=== PATIENT | male | born 1975 | race Caucasian/White ===

== ENCOUNTER 2016-08-12 07:55 | Emergency (ER) | payer OTHER ==
[2016-08-12 08:21] VITALS: BP 144/99; PULSE 74; RESP 20; TEMP 97.3; O2SAT 97
--- NOTE | 2016-08-12 08:35 | CPEKG ---
Heart Rate: 64 RR Interval: 938 P-R Interval: 156 QRSD Interval: 108 QT Interval: 428 QTC Interval: 442 P [place]: 69 QRS [place]: 76 T Wave [place]: 58 EKG Severity - ABNORMAL ECG - EKG Impression: SINUS RHYTHM EKG Impression: INCOMPLETE RIGHT BUNDLE BRANCH BLOCK Electronically Signed By: Dieudonne Sanchez 16-Aug-2016 09:04:10
--- NOTE | 2016-08-12 08:58 | UCPHY ---
H & P Time Seen by Provider: 08/12/16 08:07 Patient Type: New HPI/ROS: CHIEF COMPLAINT: Anxiety, insomnia HPI: The patient is a 41-year-old male who states that he recently underwent a sleep test for insomnia and believes that he has sleep apnea. The patient describes waking each night in a severe panic feeling like his body will stop breathing at any moment. This has been going on for approximately 1 month. Describes severe anxiety throughout the course of the day as well as severe preoccupation with his blood pressure and concern over the fact that his bilateral hands feel cold. He is concerned that he is having heart attack. He states that he has not received the results of his sleep study which was performed approximately 3 weeks ago. REVIEW OF SYSTEMS: Aside from elements discussed in the HPI, a comprehensive 10-point review of systems was reviewed and is negative. PMH: Anxiety. No known history of cardiac disease. SOCIAL HISTORY: . Denies alcohol or drug abuse. FAMILY HISTORY: Reviewed, noncontributory PHYSICAL EXAM: General:Patient is alert, in no acute distress. He appears quite anxious. ENT:Eyes are normal to inspection. ENT inspection normal. Neck: Normal inspection. Full range of motion. Respiratory:No respiratory distress. Breath sounds normal bilaterally. Cardiovascular: Regular rate and rhythm. Strong peripheral pulses. Normal cap refill. Abdomen:The abdomen is nontender to palpation. There are no peritoneal signs. There are normal bowel sounds. Back: Normal to inspection. No tenderness to palpation. Skin: Normal color. No rash. Warm and dry. Extremities: Normal appearance. Full range of motion. Neuro: Oriented x3. Normal motor function. Normal sensory function. Smoking Status: Never smoked Constitutional: Initial Vital Signs Temperature (C) 36.3 C 08/12/16 08:16 Heart Rate 74 08/12/16 08:16 Respiratory Rate 20 08/12/16 08:16 Blood Pressure 144/99 H 08/12/16 08:16 O2 Sat (%) 97 08/12/16 08:16 O2 Delivery Mode Room Air Allergies/Adverse Reactions: No Known Allergies Allergy (Unverified 08/12/16 08:21) Home Medications: Medication Instructions Recorded ALPRAZolam [Xanax 0.5 MG (*)] 0.5 mg PO TID PRN #20 tab 08/12/16 Aspirin EC 81 mg (*) 08/12/16 Ativan 08/12/16 Prevacid 08/12/16 MDM/Departure - MDM ED Course/Re-evaluation: This patient presents with severe anxiety concerning for panic disorder. He may indeed have sleep apnea, but he is suffering quite debilitating symptoms related to anxiety. We performed an EKG which reveals no sign of ischemia or abnormality. Given the fact that his symptoms have been ongoing for approximately 1 month and he continues to have a normal EKG and normal physical exam, I doubt that this represents acute coronary syndrome or cardiac-induced true PND. I explained to the patient that we would need to perform additional blood work and imaging to rule out a heart problem, but he declines blood testing here. I was able to call [facility] and arrange for an appointment on Monday which the patient is comfortable pursuing. I do think the patient would benefit from a trial of oral Xanax to try encouraged his symptoms. He is comfortable with this plan as well. We discussed strict return precautions. - Depart Disposition: Home, Routine, Self-Care Clinical Impression: Panic disorder Condition: Good Instructions: Anxiety (ED) Additional Instructions: Follow-up with a manager technical within 1 week. Return to the hospital for chest pain, shortness of breath, other concerns. You have an appointment with Pablo Santos on Tuesday 08/15 at 9am. Please check in for your appointment no later than 08:45.The office address is listed below for your convenience. if you have any questions, please contact the office directly at the number listed. [address] [id number] Prescriptions: ALPRAZolam [Xanax 0.5 MG (*)] 0.5 mg PO TID PRN #20 tab PRN Reason: Anxiety Referrals: Valeria Marinelli MD [Primary Care Provider] - As per Instructions Pablo Santos, AUTOMATIC SPLICING MACHINE OPERATOR [Certified Nurse Practioner] - As per Instructions - PQRS PQRS Measurement: 134: Depression screening and followup, PRIME HENDRICKS-PHQ2 (12 years and older) Over the last 2 weeks, how often have you been bothered by any of the following problems? 1. Feeling down, depressed, or hopeless? 2. Little interest or pleasure in doing things? Patient answered no to both 1 and 2 130: Documentation of medications. Reviewed all patient medications, doses, route and frequency. 226: Do you smoke? No. 51: 18 years old and older with diagnosis of COPD, spirometry performance. Spirometry not performed; equipment not available. Patient has no history of COPD 52: 18 years old and older with COPD and symptoms of COPD or FEV1<60% predicted prescribed a B Agonist. Spirometry not performed; equipment not available.
== END 2016-08-12 09:25 | disposition home or self-care (01) ==
LOC: CED 07:55
DX: F41.9 Anxiety disorder, unspecified (principal); G47.00 Insomnia, unspecified
CPT/HCPCS: 93010-PO; 99204-PO; G0463-PO